=== PATIENT | male | born 1980 | race Caucasian/White ===

== ENCOUNTER 2022-03-05 13:52 | Inpatient (IN) | payer MEDICAID ==
[~2022-03-05] VITALS: Ht 167.6 cm; Wt 93.9 kg
[~2022-03-05 13:52] MED LIST: CALCIUM CHLORIDE 1 GM/10 ML DISP.SYRIN IVP ONE; EPINEPHRINE 1:10,000 1 MG/10 ML DISP.SYRIN ONE; SODIUM BICARBONATE 8.4% 50 MEQ/50 ML DISP.SYRIN IV ONE
[2022-03-05] MEDS ORDERED: ASPIRIN 325 MG TABLET PO ONE (14:00)
[2022-03-05] MEDS ORDERED: FUROSEMIDE 40 MG/4 ML VIAL IV ONE (14:00)
--- NOTE | 2022-03-05 14:00 | NUR ---
EROS RA07 ON CPAP from home with c/o SOB. Pt is a [employer] member and was d/c from [employer] today morning per report. Pt to room 3A, placed on BiPap by GOODWILL AMBASSADOR. at bedside.
[2022-03-05] MEDS ORDERED: FUROSEMIDE 40 MG/4 ML VIAL ONE (14:02)
[2022-03-05] MEDS ORDERED: ASPIRIN 325 MG TABLET ONE (14:02)
[2022-03-05 14:11] LABS: HEMATOCRIT 44.1 % (36.7-47.1); MEAN CORPUSCULAR HEMOGLOBIN 29.5 uug (23.8-33.4); MEAN CORPUSCULAR VOLUME 87.8 fL (73.0-96.2); PLATELET COUNT (AUTO) 231 K/uL (152-348)
[2022-03-05 14:16] LABS: CARBON DIOXIDE 23 mmol/L (21-32); CHLORIDE 102 mmol/L (98-107); CREATININE 1.6 mg/dL (0.6-1.3); GLUCOSE 210 mg/dL (74-106); POTASSIUM 4.1 mmol/L (3.5-5.1); UREA NITROGEN, BLOOD 26 mg/dL (7-18)
[2022-03-05] MEDS ORDERED: NITR0.4T48 SL (14:16)
[2022-03-05] MEDS ORDERED: EZET10TA15 PO (14:16)
[2022-03-05] MEDS ORDERED: NPH,100V SQ (14:16)
[2022-03-05] MEDS ORDERED: DABI150C PO (14:16)
[2022-03-05] MEDS ORDERED: LEVE500T20 PO (14:16)
[2022-03-05] MEDS ORDERED: FURO20TA4 PO (14:16)
[2022-03-05] MEDS ORDERED: ATOR80TA PO (14:16)
[2022-03-05] MEDS ORDERED: LOSA25TA27 PO (14:16)
[2022-03-05] MEDS ORDERED: GLIP5TAB13 PO (14:16)
[2022-03-05] MEDS ORDERED: CARV12.52 PO (14:16)
[2022-03-05 14:25] LABS: ALANINE AMINOTRANSFERASE 92 U/L (16-63); ALKALINE PHOSPHATASE 208 U/L (50-136); ASPARTATE AMINOTRANSFERASE 49 U/L (15-37); BILIRUBIN,DIRECT 0.2 mg/dL (0.0-0.2); BILIRUBIN,TOTAL 0.8 mg/dL (0.2-1.0); TOTAL PROTEIN, SERUM 7.1 g/dL (6.4-8.2)
[2022-03-05] MEDS ORDERED: hydrALAZINE HCL 20 MG/1 ML VIAL ONE ×2 (14:29)
[2022-03-05] MEDS ORDERED: hydrALAZINE HCL 20 MG/1 ML VIAL IV ONE (14:30)
[2022-03-05] MEDS ORDERED: CEFTRIAXONE 1 G in IV DEXTROSE 5% 50 ML IV ONE (14:45)
[2022-03-05] MEDS ORDERED: CEFTRIAXONE /D5W 50ML IVPB **ER PYXIS IV ONE (14:50)
--- NOTE | 2022-03-05 17:08 | NUR ---
Received call from lab, pt Troponin is 13,001. made aware.
[2022-03-05] MEDS ORDERED: AZITHROMYCIN IV 500 MG in IV DEXTROSE 5% 250 ML IV ONE (17:15)
[2022-03-05] MEDS ORDERED: AZITHROMYCIN 500MG/ D5W 250ML IVPB **ER PYXIS ONLY IV ONE (17:23)
--- NOTE | 2022-03-05 18:09 | NUR ---
Notified about pt's Troponin of 5030.
[2022-03-05] MEDS ORDERED: ONDANSETRON 4 MG/2 ML VIAL ONE (18:11)
--- NOTE | 2022-03-05 18:20 | NUR ---
Pt to be admitted to CCU under care of Parviz Garrett DNP.
[2022-03-05] MEDS ORDERED: NITROGLYCERIN 0.4 MG/TAB BOTTLE SL PRN (19:45)
[2022-03-05 20:00] VITALS: BP 149/74
[2022-03-05] MEDS: ATORVASTATIN 40 MG TABLET PO SCH (21:00)
[2022-03-05] MEDS ORDERED: SUCCINYLCHOLINE CHLORIDE 200 MG/10 ML VIAL IV ONE (21:00)
[2022-03-05] MEDS ORDERED: ETOMIDATE 20 MG/10 ML VIAL IV ONE (21:00)
[2022-03-05] MEDS ORDERED: CARVEDILOL 12.5 MG TABLET PO SCH (21:50)
[2022-03-05] MEDS ORDERED: FUROSEMIDE 20 MG TABLET PO SCH (21:51)
[2022-03-05] MEDS: LOSARTAN POTASSIUM 25 MG TABLET PO SCH (21:53)
[2022-03-05] MEDS ORDERED: FUROSEMIDE 20 MG TABLET ONE (22:12)
[2022-03-05] MEDS ORDERED: levETIRAcetam 250 MG TABLET ONE (22:12)
[2022-03-05] MEDS ORDERED: ATORVASTATIN 20 MG TABLET ONE (22:13)
[2022-03-05] MEDS ORDERED: CARVEDILOL 12.5 MG TABLET ONE (22:13)
[2022-03-05] MEDS: levETIRAcetam 500 MG TABLET PO SCH (22:25)
--- NOTE | 2022-03-05 23:33 | NUR ---
No admission orders on pt Calls x2 placed as pt is still on ED census.
[2022-03-06] VITALS (14 sets, daily range): BP systolic 87–158; BP diastolic 33–98
--- NOTE | 2022-03-06 | NUR ---
bPT HR 59-61. BP 125/64. MD NOTIFIED
--- NOTE | 2022-03-06 05:06 | NUR ---
Patient tachypnic Noted grimacing but states he is not in pain when asked. Afebrile this am. Sinus rhythm/Sinus tach on monitor. Pending bed availibility on floor. On Lasix urine output good. No nausea or vomiting at this time.
--- NOTE | 2022-03-06 05:28 | NUR ---
Pt off Bipap during the night Saturation above 92%
[2022-03-06] MEDS ORDERED: BUMETANIDE INJ 6 MG in IV DEXTROSE 5% 36 ML IV ONE (07:00)
[2022-03-06] MEDS ORDERED: ONDANSETRON 4 MG/2 ML VIAL IV PRN (07:00)
[2022-03-06] MEDS: PANTOPRAZOLE SODIUM 40 MG TABLET.DR PO SCH (07:00)
[2022-03-06] MEDS ORDERED: REMEDY ESSENTIAL ZINC PASTE 113 GM TP PRN (07:00)
[2022-03-06] MEDS ORDERED: DEXTROSE 50% 50 ML DISP.SYRIN IV PRN (07:00)
[2022-03-06] MEDS: glipiZIDE 10 MG TABLET PO SCH ×2 (07:30→16:30)
[2022-03-06] MEDS: BLOOD SUGAR DIAGNOSTIC 1 EACH STRIP VI SCH ×4 (08:03→23:00)
[2022-03-06] MEDS ORDERED: INSULIN REGULAR, HUMAN 300 UNIT/3 ML VIAL ONE (08:04)
--- NOTE | 2022-03-06 08:07 | NUR ---
Queued orders placed. REport to charge nurse in ED. Pt to be transferred to #rd Floor. Pending Heparin and Bumex drips. Pt stable and improved
[2022-03-06 08:12] LABS: HEMATOCRIT 40.6 % (36.7-47.1); MEAN CORPUSCULAR HEMOGLOBIN 30.5 uug (23.8-33.4); MEAN CORPUSCULAR VOLUME 88.1 fL (73.0-96.2); PLATELET COUNT (AUTO) 170 K/uL (152-348)
[2022-03-06] MEDS: INSULIN REGULAR, HUMAN 300 UNITS/3 ML VIAL SQ PRN (08:14)
[2022-03-06 08:28] LABS: BILIRUBIN,TOTAL 1.2 mg/dL (0.2-1.0); CREATININE 1.9 mg/dL (0.6-1.3); POTASSIUM 4.3 mmol/L (3.5-5.1); TOTAL PROTEIN, SERUM 6.3 g/dL (6.4-8.2)
[2022-03-06] MEDS: INSULIN NPH 1,000 UNITS/10 ML VIAL SQ SCH ×2 (09:00→17:10)
[2022-03-06] MEDS ORDERED: levETIRAcetam 250 MG TABLET ONE (09:01)
[2022-03-06] MEDS ORDERED: ASPIRIN EC 81 MG TABLET.DR PO ONE (09:01)
[2022-03-06] MEDS ORDERED: PANTOPRAZOLE SODIUM 40 MG TABLET.DR PO ONE (09:01)
[2022-03-06] MEDS ORDERED: CARVEDILOL 12.5 MG TABLET ONE (09:01)
[2022-03-06] MEDS: ASPIRIN 81 MG TAB.CHEW PO SCH (09:13)
[2022-03-06] MEDS: CARVEDILOL 12.5 MG TABLET PO SCH ×2 (09:20→21:14)
[2022-03-06] MEDS: LOSARTAN POTASSIUM 25 MG TABLET PO SCH ×2 (09:21→21:15)
[2022-03-06] MEDS: levETIRAcetam 500 MG TABLET PO SCH ×3 (09:22→21:13)
[2022-03-06] MEDS: EZETIMIBE 10 MG TABLET PO SCH (09:23)
[2022-03-06] MEDS: CLOPIDOGREL 75 MG TABLET PO SCH (09:24)
[2022-03-06] MEDS ORDERED: CLOPIDOGREL 75 MG TABLET ONE (09:24)
[2022-03-06] MEDS ORDERED: INSULIN NPH 1,000 UNITS/10 ML VIAL SQ ONE (10:08)
--- NOTE | 2022-03-06 10:08 | NUR ---
Called Lab for f/u on PTT lab result, still pending per lab.
[2022-03-06] MEDS ORDERED: hydrALAZINE HCL 20 MG/1 ML VIAL IM ONE (10:10)
[2022-03-06] MEDS ORDERED: CEFAZOLIN 1 G VIAL IM ONE (10:10)
[2022-03-06] MEDS ORDERED: ONDANSETRON 4 MG/2 ML VIAL IV ONE (10:10)
[2022-03-06] MEDS ORDERED: METOCLOPRAMIDE HCL 10 MG/2 ML VIAL IV ONE (10:10)
[2022-03-06] MEDS ORDERED: PROPOFOL 200 MG/20 ML BOTTLE IV ONE (10:10)
[2022-03-06] MEDS ORDERED: SEVOFLURANE 250 ML BOTTLE IH ONE (10:10)
[2022-03-06] MEDS ORDERED: LIDOCAINE-MPF 2% 5 ML VIAL IJ ONE (10:10)
[2022-03-06] MEDS ORDERED: NEOSTIGMINE METHYLSULFATE 10 MG/10 ML VIAL IM ONE (10:10)
[2022-03-06] MEDS ORDERED: HEPARIN SODIUM,PORCINE 5,000 UNITS/ML VIAL IV ONE (10:30)
[2022-03-06] MEDS ORDERED: HEPARIN SODIUM,PORCINE 5,000 UNITS/ML VIAL ONE (10:41)
[2022-03-06] MEDS ORDERED: HEPARIN/D5W DRIP 500 ML ONE (10:41)
[2022-03-06] MEDS: HEPARIN/D5W DRIP 500 ML IV PRN (10:46)
[2022-03-06] MEDS ORDERED: LORAZEPAM 2 MG/1 ML VIAL IV PRN (11:15)
[2022-03-06] MEDS ORDERED: LORAZEPAM 2 MG/1 ML VIAL ONE (11:18)
[2022-03-06] MEDS: INSULIN REGULAR, HUMAN 300 UNIT/3 ML VIAL SQ PRN ×2 (12:00→17:15)
--- NOTE | 2022-03-06 12:34 | NUR ---
Bumex infusing @ 1mg/hour, Heparin infusing at 1200 units/hour PIV L AC. Patient on BiPAP, O2 sat now 97% up from 91% on NRB mask. Report called to ICU, awaiting RT to transport patient. No c/o chest pain with elevated troponin. Monitor RSR.
[2022-03-06 13:35] LABS: *AMPHETAMINE, URINE NEGATIVE (NEGATIVE); *CANNABINOID, URINE NEGATIVE (NEGATIVE); *COCCAINE, URINE NEGATIVE (NEGATIVE); *OPIATE, URINE POSITIVE (NEGATIVE); *PHENCYCLIDINE SCREEN,URINE NEGATIVE (NEGATIVE)
[2022-03-06] MEDS ORDERED: LIDOCAINE 2% (GLYDO= UROJET) 10 ML JELLY MM PRN (15:00)
--- NOTE | 2022-03-06 16:49 | NUR ---
Pt given ativan for restlessness and is still very restless and trying to get out of bed
--- NOTE | 2022-03-06 17:06 | NUR ---
Midline inserted by Delia from service in the left upper arm. Site is clean dry and patent
--- NOTE | 2022-03-06 17:41 | NUR ---
Sabrina Spoke with Dr Parviz Richardson about pt getting 1mg of ativan as ordered and still restless and moving about. 1:1 sitter ordered with stat chest xray and Olanzapine 10mg IM now
[2022-03-06] MEDS ORDERED: OLANZAPINE 10 MG VIAL IM ONE (17:45)
--- NOTE | 2022-03-06 19:46 | NUR ---
A call to Dr. Parviz Garrett as requested earlier to report X-ray imaging orders for STAT chest C-T without contrast and stat ABG received. and endorse to returns supervisor and assigned night nurse Juanita.
--- NOTE | 2022-03-06 20:02 | NUR ---
patient isnt stable to come to CT. RN to call the department when ready.
[2022-03-06 20:35] LABS: ABG BASE EXCESS 3.1 mmol/L; ABG PCO2 30.3 mmHg (35.0-45.0); ABG PH 7.534 (7.350-7.450); ABG PO2 79.4 mmHg (75.0-100.0); ABG SITE RIGHT RADIAL; ABG TOTAL HEMOGLOBIN 13.6 G/dL (13.5-18.0); COHb 0.3 % (0.5-1.5); MetHb 0.3 % (0.0-1.5); VENT MODE BIPAP
[2022-03-06] MEDS ORDERED: LORAZEPAM 2 MG/1 ML VIAL IV STA (20:58)
[2022-03-06] MEDS: ATORVASTATIN 40 MG TABLET PO SCH (21:13)
[2022-03-06] MEDS ORDERED: CEFEPIME HCL 1 G VIAL ONE (23:25)
[2022-03-06] MEDS ORDERED: VANCOMYCIN 1000 MG VIAL ONE (23:26)
[2022-03-06] MEDS ORDERED: VANCOMYCIN IV 2,000 MG in IV DEXTROSE 5% 500 ML IV ONE (23:30)
[2022-03-07] VITALS (38 sets, daily range): BP systolic 65–167; BP diastolic 38–129
[2022-03-07] MEDS ORDERED: ETOMIDATE 20 MG/10 ML VIAL IV ONE
[2022-03-07] MEDS ORDERED: SUCCINYLCHOLINE CHLORIDE 200 MG/10 ML VIAL IV ONE
[2022-03-07] MEDS: PROPOFOL 100 ML IV PRN ×3 (00:30→17:53)
[2022-03-07] MEDS: CEFEPIME HCL 2 G in IV DEXTROSE 5% 100 ML IV SCH ×3 (00:56→23:08)
[2022-03-07] MEDS ORDERED: PROPOFOL 100 ML IV PRN ×2 (01:45)
[2022-03-07] MEDS ORDERED: NOREPINEPHRINE BITARTRATE 8 MG in IV NORMAL SALINE 242 ML IV PRN (01:45)
[2022-03-07] MEDS ORDERED: NOREPINEPHRINE BITARTRATE 4 MG/4 ML VIAL IV ONE ×2 (01:49→02:10)
--- NOTE | 2022-03-07 02:39 | NUR ---
PATIENT MR DIAZ, AT 19:00 WAS ON BI/PAP MACHINE WITH FULL LARGE MASK, WITH MOD. RESP. DISTRESS, AND RESTLESS AT TIMES, PT TURNS ALOT OF LEFT SIDE, PT WAS GOING TO CT/SCAN IN A BIT; PT WAS PLACED ON NRB MASK @ 100%, AND THEN BECAME WITH INCREASE WORK OF BREATHING HIGH HR, RR INCREASED, AND DE SAT- PULSE OXY WAS 95% ON BI/PAP THEN 83%, ON NRB MASK,SO PT THEN BACK ON BI/PAP TO CT/ SCAN AND RT ASSIST , HAD ABG AROUND 20:30, RESP. ALK. , PT GOING TO CT SCAN WITH RT ABOUT 21:20. , BACK BY 22;00. PT BREATHING VERY RAPID, MAY NEED A LITTLE SEDATION TO SLOW HIM DOWN, THEN DR ARRIETA WANTS PT INTUBATED APPROX. [id number], DR BELTRÁN CALLED FROM, ER, TO INTUBATE, 7.5 ET TUBE, 22CM LIP LINE, WITH INITIAL SETTINGS, FROM DR BELTRÁN, A/C 16, VT 550ML, PEEP5, 100%, THEN BY 129, DR ERIC WANT DIFFERENT VENT SETTINGS, A/C 24, VT 450ML, PEEP10, 100%, PT THEN BECAME RESTLESS, MOVING AROUND, WITH INCREASE HR AND RR ABOVE 48, NURSING ANG INTERACTIVE MULTIMEDIA DESIGNER CALLED RAPID RESPONSE, PT NEEDS SEDATION, PT PLACED BACK ON ORIGINAL VENT SETTINGS, A/C 16, VT 550ML, 100%, WITH PEEP10 NOW , AND IMPROVING AROUND 02:10 RR28, HR 97, WITH ABG LATER , MARTINEZ ELEMENT HERE SEDATION. Corinne GOEL SPECIAL DUTY NURSE Addendum: 03/07/22 at 0252 by RYAN GOEL RT Amended: Links added.
[2022-03-07 05:28] LABS: ABG BASE EXCESS 2.3 mmol/L; ABG PCO2 28.6 mmHg (35.0-45.0); ABG PH 7.541 (7.350-7.450); ABG PO2 83.9 mmHg (75.0-100.0); ABG SITE RIGHT RADIAL; COHb 0.2 % (0.5-1.5); MetHb 0.3 % (0.0-1.5); O2Hb 96.6 % (94.0-97.0); VENT MODE VENT - A/C; VT, ABG 550 mL
[2022-03-07] MEDS: ACETAMINOPHEN 650 MG SUPP.RECT RC PRN ×2 (05:30→12:00)
[2022-03-07 05:33] LABS: HEMATOCRIT 37.2 % (36.7-47.1); MEAN CORPUSCULAR HEMOGLOBIN 30.5 uug (23.8-33.4); MEAN CORPUSCULAR VOLUME 87.1 fL (73.0-96.2); PLATELET COUNT (AUTO) 122 K/uL (152-348)
[2022-03-07 05:38] LABS: BILIRUBIN,TOTAL 0.9 mg/dL (0.2-1.0); CREATININE 2.6 mg/dL (0.6-1.3); MAGNESIUM 1.6 mg/dL (1.8-2.4); PHOSPHOROUS 3.2 mg/dL (2.5-4.9); POTASSIUM 3.4 mmol/L (3.5-5.1)
--- NOTE | 2022-03-07 06:00 | NUR ---
[id number] REPORT FROM MARY JONES. PT HAS IS ON BIPAP AND SHOWS S/S OF ACUTE RESP. DISTRESS. CONTACTED AND ORD. STAT ABG AND STAT CT OF THE CHEST W/O CONTRAST. PT HAS BEEN IN S.TACH OF 110-130-140'S. BP ALSO ELEVATED AT TIMES TO >160'S SYST. PT ALSO HAD DESAT IN THE 80'S WHEN PLACED ON NRB FMK JUST BEFORE GOING TO CT. PT PLACED BACK ON BIPAP AND WHEN PT BECAME MORE STABLE WITH POX >90-PT WAS TAKEN TO CT WITH ACLS PROTOCOL. RTX AND BATTERY ASSEMBLER DRY CELL PRESENT WITH TRANSPORT TO CT SCAN. PT ALSO HAD ABG RESULTS-CALLED TO DR. ARRIETA.NO NEW ORDS. PT CONT. IN RESP DISTRESS- CONTACTED AGAIN AND GAVE ORDER FOR PT TO BE INTUBATED. PT INTUBATED AT APROX 2345. PT'S WAS AT BEDSIDE EARLIER-BUT SPOKE TO ER MD ABOUT INTUBATION. PT INTUBATED BY DR. BELTRÁN. PT PRANAV WELL EXCEPT POX WAS LOW IN THE 80'S. S/P CXR DONE-SHOWED PLACEMENT IS GOOD.MD INFORMED. VENT SETTINGS WERE FIO2 100%, AC16,TV 550 AND P+5. RTX AT BEDSIDE IS RTX MARIBEL. PT'S POX INCREASED TO 95-97%. INFORMED AND CHANGED VENT SETTINGS TO AC 24,TV 450 AND PEEP 10. PT'S POX IMMED WENT DOWN TO 80'S, THEN 70'S THEN 60-50'S. RAPID RESPONSE CALLED AT APROX 0150 BECAUSE PT CONT TO HAVE LOW SAT AND WAS VERY TACHEPNIC WITH RR OF 30-50'S. WIRE WEAVER HELPER ERNESTO BAUTISTA CONTACTED AND ORD VENT SETTINGS FROM INITIAL VENT SETTING OF AC 16,TV 550 AND PEEP 10. POX IMMED WENT BACK UP TO 97-98%. ABG DONE ALSO.PT ALSO WAS STARTED ON DIPRIVAN DRIP (STARTED AT 10MCG THEN WENT UP TO 40MCG). #20 LEFT SHOULDER IV STARTED BY CEMETERY MANAGERMARY PERLA. PT ALSO HAS BEEN ON HEPARIN DRIP WITH PROTOCOL PER PHARM. HEPARIN DRIP WAS STOPPED AT 0600 DUE TO PTT OF 91.3-ORDS GIVEN TO RESTART IN 1HR(0700) AT 900 UNITS/HR. PT SHOWS NO S/S OF BLEEDING. ALSO, EARLIER AT 2300 PT HAD ACCUCHECK OF 51(REPEAT WAS 47). PT MED WITH D50 1AMP-ACCUCHECK AFTERWARDS WAS 104. PT ALSO HAS ORD FOR SOFT RESTRAINTS-ATTEMPTED TO PULL LINES AND TUBES EARLIER. PT HAS F/C-U/O 700CC-HOMA/CLR. PT HAS BEEN FEBRILE THRU-OUT THE NIGHT. BC DONE AND COOLING CHRISTINE DONE-TMAX WAS 102.8F. PT ALSO MED WITH TYLENOL SUPP. TEMP CAME DOWN TO 99.2F BUT WENT BACK UP TO 101F. COOLING CHRISTINE CONT. BATH AND LINEN CHANGE DONE. SKIN IS D/I. AM LABS DONE. GEN COND HAS BEEN VERY GUARDED. PT ALSO IS IN DROPLET ISOLATION PUI. PT ENDORSED TO MARY BRADY. JESSI HERNANDEZ
[2022-03-07] MEDS: PANTOPRAZOLE SODIUM 40 MG TABLET.DR PO SCH ×2 (06:50→07:00)
[2022-03-07] MEDS: HEPARIN/D5W DRIP 500 ML IV PRN (07:19)
[2022-03-07] MEDS ORDERED: METOLAZONE 2.5 MG TABLET PO ONE (07:30)
[2022-03-07] MEDS: BLOOD SUGAR DIAGNOSTIC 1 EACH STRIP VI SCH ×4 (07:30→21:00)
--- NOTE | 2022-03-07 08:00 | NUR ---
Received patient ETT to Vent. Sedated. Vent setting as follows TV 550, AC 26, PEEP 10 and 100% FiO2. SR in the monitor. On Heparin drip. IV on the Left Upper arm and left arm midline patent and intact. group home assessment done. No new skin issues. Richards draining alex urine with sediments. Safety initiated. Will continue to monitor.
[2022-03-07] MEDS: NOREPINEPHRINE BITARTRATE 8 MG in IV NORMAL SALINE 242 ML IV PRN ×2 (08:50→19:14)
[2022-03-07] MEDS: INSULIN NPH 1,000 UNITS/10 ML VIAL SQ SCH ×2 (09:00→17:06)
[2022-03-07] MEDS: POTASSIUM CHLORIDE 50 ML IV SCH ×2 (09:59→11:07)
[2022-03-07] MEDS: MAGNESIUM SULFATE/D5W 100 ML IV SCH ×2 (10:00→11:50)
[2022-03-07] MEDS: FUROSEMIDE 40 MG/4 ML VIAL IV SCH ×3 (10:01→23:30)
[2022-03-07] MEDS ORDERED: GLUCERNA 1.2 1000ML LIQUID NG PRN ×2 (11:00→12:13)
--- NOTE | 2022-03-07 12:30 | NUR ---
Pt is spiking a fever at 101. Tylenol suppository given. Will continue to monitor.
[2022-03-07] MEDS: CLOPIDOGREL 75 MG TABLET PO SCH (13:11)
[2022-03-07] MEDS: EZETIMIBE 10 MG TABLET PO SCH (13:12)
[2022-03-07] MEDS: levETIRAcetam 500 MG TABLET PO SCH ×2 (13:12→22:36)
[2022-03-07] MEDS: ASPIRIN 81 MG TAB.CHEW PO SCH (13:12)
[2022-03-07] MEDS: glipiZIDE 10 MG TABLET PO SCH ×2 (13:12→17:05)
[2022-03-07] MEDS: GLUCERNA 1.2 1000ML LIQUID NG PRN (13:13)
--- NOTE | 2022-03-07 13:30 | NUR ---
Fever has resolved at 98.0. Will continue to monitor.
[2022-03-07] MEDS: ACETAMINOPHEN 325 MG TABLET PO PRN (22:56)
[2022-03-08] VITALS (67 sets, daily range): BP systolic 78–162; BP diastolic 35–104
[2022-03-08] MEDS: PROPOFOL 100 ML IV PRN ×7 (01:14→22:00)
--- NOTE | 2022-03-08 04:27 | NUR ---
PATIENT REMAINS INTUBATED ON NGUYEN VENT , WITH CURRENT VENT SETTINGS, A/C 16, VT 550ML, PEEP10, FIO2 2 80%, PT SEDATED , PRN SUCTION, ABG BEFORE 06;00. D AMANDO FONTANEZ Addendum: 03/08/22 at 0428 by RYAN GOEL RT Amended: Links added.
[2022-03-08] MEDS ORDERED: NOREPINEPHRINE BITARTRATE 32 MG in IV NORMAL SALINE 218 ML IV PRN (05:30)
[2022-03-08 05:41] LABS: HEMATOCRIT 37.8 % (36.7-47.1); MEAN CORPUSCULAR HEMOGLOBIN 30.7 uug (23.8-33.4); MEAN CORPUSCULAR VOLUME 87.4 fL (73.0-96.2); PLATELET COUNT (AUTO) 146 K/uL (152-348)
[2022-03-08 05:44] LABS: CREATININE 2.3 mg/dL (0.6-1.3); POTASSIUM 3.8 mmol/L (3.5-5.1)
[2022-03-08 06:44] LABS: ABG HCO3 23.6 mmol/L; ABG PCO2 25.9 mmHg (35.0-45.0); ABG PH 7.577 (7.350-7.450); ABG PO2 236.7 mmHg (75.0-100.0); ABG SITE LEFT RADIAL; COHb 0.5 % (0.5-1.5); MetHb 0.4 % (0.0-1.5); O2Hb 98.7 % (94.0-97.0); VENT MODE VENT - A/C; VT, ABG 550 mL
[2022-03-08] MEDS: BLOOD SUGAR DIAGNOSTIC 1 EACH STRIP VI SCH ×4 (07:30→21:49)
[2022-03-08] MEDS: glipiZIDE 10 MG TABLET PO SCH ×2 (07:30→16:23)
[2022-03-08] MEDS ORDERED: VANCOMYCIN IV 1,000 MG in IV DEXTROSE 5% 250 ML IV ONE (08:00)
[2022-03-08] MEDS ORDERED: METOLAZONE 2.5 MG TABLET PO ONE (08:15)
--- NOTE | 2022-03-08 08:30 | NUR ---
Pt remains sedated on propofol . levophed and heparin drips in progress. Stable BP Urine output good.
[2022-03-08] MEDS: FUROSEMIDE 40 MG/4 ML VIAL IV SCH ×2 (08:31→16:22)
[2022-03-08] MEDS: levETIRAcetam 500 MG TABLET PO SCH ×2 (08:31→21:13)
[2022-03-08] MEDS: ASPIRIN 81 MG TAB.CHEW PO SCH (08:32)
[2022-03-08] MEDS: CLOPIDOGREL 75 MG TABLET PO SCH (08:32)
[2022-03-08] MEDS: EZETIMIBE 10 MG TABLET PO SCH (08:32)
[2022-03-08] MEDS: INSULIN NPH 1,000 UNITS/10 ML VIAL SQ SCH ×2 (08:33→16:26)
[2022-03-08] MEDS: NOREPINEPHRINE BITARTRATE 8 MG in IV NORMAL SALINE 242 ML IV PRN ×2 (08:34→13:15)
[2022-03-08] MEDS: HEPARIN/D5W DRIP 500 ML IV PRN (08:36)
[2022-03-08] MEDS: INSULIN REGULAR, HUMAN 300 UNIT/3 ML VIAL SQ PRN ×3 (08:53→16:27)
[2022-03-08] MEDS: INSULIN REGULAR, HUMAN 300 UNITS/3 ML VIAL SQ PRN (08:58)
[2022-03-08] MEDS: ACETAMINOPHEN 325 MG TABLET PO PRN (09:07)
[2022-03-08] MEDS: CEFEPIME HCL 2 G in IV DEXTROSE 5% 100 ML IV SCH ×2 (11:44→23:00)
[2022-03-09] VITALS (68 sets, daily range): BP systolic 93–146; BP diastolic 52–81
[2022-03-09] MEDS: INSULIN REGULAR, HUMAN 300 UNIT/3 ML VIAL SQ PRN ×2 (00:06→17:13)
--- NOTE | 2022-03-09 00:13 | NUR ---
SLIDING SCALE INSULIN 2 UNITS GIVEN @2100 HOURS BUT CO SIGNED BY THE FINANCIAL INVESTMENT MANAGER AT 0006 HOURS
[2022-03-09] MEDS: FUROSEMIDE 40 MG/4 ML VIAL IV SCH (00:45)
[2022-03-09] MEDS: NOREPINEPHRINE BITARTRATE 8 MG in IV NORMAL SALINE 242 ML IV PRN ×2 (00:45→16:18)
[2022-03-09] MEDS: PROPOFOL 100 ML IV PRN ×5 (03:25→21:00)
[2022-03-09] MEDS: ACETAMINOPHEN 325 MG TABLET PO PRN ×2 (04:53→12:43)
[2022-03-09 05:17] LABS: BILIRUBIN,DIRECT 0.5 mg/dL (0.0-0.2); BILIRUBIN,TOTAL 0.9 mg/dL (0.2-1.0); CREATININE 3.6 mg/dL (0.6-1.3); MAGNESIUM 2.3 mg/dL (1.8-2.4); TOTAL PROTEIN, SERUM 5.8 g/dL (6.4-8.2); VANCOMYCIN,RANDOM 15.7 ug/mL (18.0-26.0)
[2022-03-09 05:31] LABS: HEMATOCRIT 35.8 % (36.7-47.1); MEAN CORPUSCULAR HEMOGLOBIN 30.8 uug (23.8-33.4); MEAN CORPUSCULAR VOLUME 85.6 fL (73.0-96.2); PLATELET COUNT (AUTO) 105 K/uL (152-348); POTASSIUM 2.8 mmol/L (3.5-5.1)
[2022-03-09] MEDS: ALBUMIN HUMAN 25% 100 ML IV SCH ×2 (06:00)
[2022-03-09 06:13] LABS: ABG HCO3 26.6 mmol/L; ABG PCO2 33.3 mmHg (35.0-45.0); ABG PO2 130.5 mmHg (75.0-100.0); ABG SITE RIGHT RADIAL; ABG TOTAL HEMOGLOBIN 13.1 G/dL (13.5-18.0); COHb 0.6 % (0.5-1.5); MetHb 0.1 % (0.0-1.5); O2Hb 98.3 % (94.0-97.0); VENT MODE VENT - A/C; VT, ABG 550 mL
[2022-03-09] MEDS: PANTOPRAZOLE SODIUM 40 MG TABLET.DR PO SCH (07:00)
[2022-03-09] MEDS: BLOOD SUGAR DIAGNOSTIC 1 EACH STRIP VI SCH ×4 (08:13→21:00)
[2022-03-09] MEDS: POTASSIUM CHLORIDE 50 ML IV SCH ×4 (08:25→11:35)
[2022-03-09] MEDS: EZETIMIBE 10 MG TABLET PO SCH (09:00)
[2022-03-09] MEDS: glipiZIDE 10 MG TABLET PO SCH ×2 (09:05→16:42)
[2022-03-09] MEDS: INSULIN NPH 1,000 UNITS/10 ML VIAL SQ SCH ×2 (09:05→17:15)
[2022-03-09] MEDS: ASPIRIN 81 MG TAB.CHEW PO SCH (09:06)
[2022-03-09] MEDS: CLOPIDOGREL 75 MG TABLET PO SCH (09:06)
[2022-03-09] MEDS: levETIRAcetam 500 MG TABLET PO SCH ×2 (09:06→21:32)
[2022-03-09] MEDS ORDERED: POTASSIUM CHLORIDE 20 MEQ POWDER PACKET GT ONE (11:00)
[2022-03-09] MEDS: CEFEPIME HCL 2 G in IV DEXTROSE 5% 100 ML IV SCH (11:50)
[2022-03-09] MEDS ORDERED: VANCOMYCIN IV 750 MG in IV DEXTROSE 5% 250 ML IV ONE (13:00)
[2022-03-09] MEDS ORDERED: ALBUMIN HUMAN 25% 100 ML IV SCH ×2 (15:00→16:46)
[2022-03-09] MEDS: HEPARIN/D5W DRIP 500 ML IV PRN (16:52)
[2022-03-09] MEDS ORDERED: CEFEPIME HCL 1 G in IV DEXTROSE 5% 50 ML IV SCH (23:00)
[2022-03-10] VITALS (53 sets, daily range): BP systolic 113–156; BP diastolic 68–86
[2022-03-10] MEDS: PROPOFOL 100 ML IV PRN ×5 (02:00→20:10)
[2022-03-10 04:49] LABS: HEMATOCRIT 34.5 % (36.7-47.1); MEAN CORPUSCULAR HEMOGLOBIN 30.8 uug (23.8-33.4); MEAN CORPUSCULAR VOLUME 86.1 fL (73.0-96.2); PLATELET COUNT (AUTO) 94 K/uL (152-348)
[2022-03-10 04:58] LABS: BILIRUBIN,TOTAL 1.6 mg/dL (0.2-1.0); MAGNESIUM 2.6 mg/dL (1.8-2.4); PHOSPHOROUS 2.6 mg/dL (2.5-4.9); POTASSIUM 2.9 mmol/L (3.5-5.1); TOTAL PROTEIN, SERUM 6.3 g/dL (6.4-8.2); VANCOMYCIN,RANDOM 24.1 ug/mL (18.0-26.0)
[2022-03-10] MEDS ORDERED: ALBUMIN HUMAN 25% 50 ML ONE (06:00)
[2022-03-10] MEDS: ALBUMIN HUMAN 25% 100 ML IV SCH ×3 (06:16→12:00)
[2022-03-10] MEDS: GLUCERNA 1.2 1000ML LIQUID NG PRN (07:11)
[2022-03-10] MEDS: NOREPINEPHRINE BITARTRATE 8 MG in IV NORMAL SALINE 242 ML IV PRN (07:13)
[2022-03-10] MEDS: BLOOD SUGAR DIAGNOSTIC 1 EACH STRIP VI SCH ×4 (07:30→21:00)
[2022-03-10] MEDS: glipiZIDE 10 MG TABLET PO SCH ×2 (07:30→12:12)
[2022-03-10] MEDS: EZETIMIBE 10 MG TABLET PO SCH (09:00)
[2022-03-10] MEDS: INSULIN NPH 1,000 UNITS/10 ML VIAL SQ SCH ×2 (09:00→17:39)
[2022-03-10] MEDS: PANTOPRAZOLE ORAL SUSPENSION 40 MG SUSPDR.PKT NG SCH (10:00)
[2022-03-10] MEDS ORDERED: POTASSIUM CHLORIDE 20 MEQ POWDER PACKET GT ONE (10:00)
[2022-03-10] MEDS: levETIRAcetam 500 MG/5 ML LIQUID UDC NG SCH ×2 (10:00→21:46)
[2022-03-10] MEDS ORDERED: ASPIRIN 81 MG TAB.CHEW PO SCH (10:36)
[2022-03-10] MEDS: CLOPIDOGREL 75 MG TABLET PO SCH (10:37)
[2022-03-10] MEDS ORDERED: IV LACTATED RINGERS SOLUTION 1,000 ML IV PRN (11:00)
[2022-03-10] MEDS ORDERED: IV LACTATED RINGERS SOLUTION 1,000 ML IV ONE (11:27)
[2022-03-10] MEDS ORDERED: ALBUMIN HUMAN 25% 100 ML IV ONE (18:00)
[2022-03-10] MEDS: APIXABAN 5 MG TABLET PO SCH (21:00)
[2022-03-10] MEDS: ACETAMINOPHEN 325 MG TABLET PO PRN (21:46)
[2022-03-10] MEDS: CEFEPIME HCL 2 G in IV DEXTROSE 5% 100 ML IV SCH (21:49)
[2022-03-11] VITALS (52 sets, daily range): BP systolic 115–166; BP diastolic 70–104
[2022-03-11] MEDS: PROPOFOL 100 ML IV PRN ×2 (01:18→06:45)
--- NOTE | 2022-03-11 03:00 | NUR ---
PT REMAINS INTUBATED ON CMV, NO VENT CHANGES MADE DURING SHIFT. SPO2 WNL, RESPIRATIONS BETWEEN 25-30 THROUGHOUT SHIFT. NO DISTRESS NOTED. ETT REPOSITIONED Q2, ETT/ORAL SXN PRN. ORAL CARE PROVIDED. WILL CONTINUE TO MONITOR AND FOLLOW CURRENT RESPIRATORY ORDERS.
[2022-03-11 05:37] LABS: HEMATOCRIT 29.4 % (36.7-47.1); MEAN CORPUSCULAR HEMOGLOBIN 30.6 uug (23.8-33.4); MEAN CORPUSCULAR VOLUME 85.9 fL (73.0-96.2); PLATELET COUNT (AUTO) 113 K/uL (152-348)
--- NOTE | 2022-03-11 05:42 | NUR ---
Pt recieved patient lying in bed with eyes clothes. Pt. is sedated on propofol. No distress noted. Pt has a huge liquid bowel movement. Pt cleaned, with linen change. Blood glucose 61. 61 and then 64, 74 Pt comfortable throughout the night. Deep suctioning provided by Resp Therapist. Report endorsed to day shift RN. Addendum: 03/11/22 at 0658 by IAN TAVERA RN Rectal tube inserted because pt had a large amount of loose stools x2.
[2022-03-11 05:50] LABS: BILIRUBIN,TOTAL 2.8 mg/dL (0.2-1.0); CREATININE 5.6 mg/dL (0.6-1.3); MAGNESIUM 2.9 mg/dL (1.8-2.4); PHOSPHOROUS 2.4 mg/dL (2.5-4.9); TOTAL PROTEIN, SERUM 6.4 g/dL (6.4-8.2)
--- NOTE | 2022-03-11 07:30 | NUR ---
pt bleeding from inside of the mouth in the front upper teeth secondary to biting his waking up and agitation.
--- NOTE | 2022-03-11 07:30 | NUR ---
Recieved patient from clinic specialist nurse. Pt on Diprovan @30 and arousable. VS stable and pt is Tachypnic at a rate of 30
[2022-03-11] MEDS: BLOOD SUGAR DIAGNOSTIC 1 EACH STRIP VI SCH ×4 (07:56→21:00)
[2022-03-11] MEDS ORDERED: VANCOMYCIN IV 500 MG in IV DEXTROSE 5% 100 ML IV ONE (08:00)
[2022-03-11] MEDS: PANTOPRAZOLE ORAL SUSPENSION 40 MG SUSPDR.PKT NG SCH (08:02)
[2022-03-11] MEDS: glipiZIDE 10 MG TABLET PO SCH ×2 (08:02→16:11)
[2022-03-11] MEDS: levETIRAcetam 500 MG/5 ML LIQUID UDC NG SCH ×2 (08:55→20:46)
[2022-03-11] MEDS: INSULIN NPH 1,000 UNITS/10 ML VIAL SQ SCH ×2 (08:55→16:19)
[2022-03-11] MEDS: EZETIMIBE 10 MG TABLET PO SCH (08:56)
[2022-03-11] MEDS: CLOPIDOGREL 75 MG TABLET PO SCH (08:56)
[2022-03-11] MEDS: APIXABAN 5 MG TABLET PO SCH ×2 (08:58→21:57)
[2022-03-11] MEDS ORDERED: FUROSEMIDE 40 MG/4 ML VIAL IV ONE (09:00)
[2022-03-11] MEDS ORDERED: POTASSIUM CHLORIDE 20 MEQ POWDER PACKET NG ONE ×2 (10:00→13:00)
[2022-03-11] MEDS: DOBUTamine IV 250 ML IV PRN (10:05)
--- NOTE | 2022-03-11 10:23 | NUR ---
Parviz Garrett on unit and changed medications from diprovan to precedex and fentanyl
[2022-03-11] MEDS: PRECEDEX 400 MCG/100 ML BOTTLE 100 ML IV PRN ×5 (10:38→21:51)
[2022-03-11] MEDS: FENTANYL CITRATE/PF 1,000 MCG in IV NORMAL SALINE 80 ML IV PRN ×2 (11:01→19:20)
[2022-03-11] MEDS ORDERED: NEUTRA PHOS PACKET PO ONE (16:00)
[2022-03-11] MEDS: CEFEPIME HCL 2 G in IV DEXTROSE 5% 100 ML IV SCH (20:46)
[2022-03-11] MEDS: ACETAMINOPHEN 650 MG SUPP.RECT RC PRN (20:47)
[2022-03-11] MEDS: ACETAMINOPHEN 325 MG TABLET PO PRN (21:02)
[2022-03-12] VITALS (62 sets, daily range): BP systolic 12–171; BP diastolic 63–104
[2022-03-12] MEDS: PRECEDEX 400 MCG/100 ML BOTTLE 100 ML IV PRN ×8 (00:57→22:56)
[2022-03-12 05:31] LABS: POTASSIUM 4.1 mmol/L (3.5-5.1); VANCOMYCIN,RANDOM 19.4 ug/mL (18.0-26.0)
[2022-03-12] MEDS: ACETAMINOPHEN 325 MG TABLET PO PRN (05:43)
[2022-03-12] MEDS: PANTOPRAZOLE ORAL SUSPENSION 40 MG SUSPDR.PKT NG SCH (07:32)
[2022-03-12] MEDS: BLOOD SUGAR DIAGNOSTIC 1 EACH STRIP VI SCH ×4 (07:59→21:00)
[2022-03-12] MEDS: INSULIN REGULAR, HUMAN 300 UNIT/3 ML VIAL SQ PRN ×4 (08:07→22:28)
[2022-03-12] MEDS: ACETAMINOPHEN 650 MG SUPP.RECT RC PRN (08:09)
[2022-03-12] MEDS: INSULIN NPH 1,000 UNITS/10 ML VIAL SQ SCH ×3 (08:10→22:30)
[2022-03-12] MEDS ORDERED: METOLAZONE 2.5 MG TABLET PO ONE (08:15)
[2022-03-12 08:33] LABS: *BILIRUBIN,URIN 1+ (NEGATIVE); *BLOOD, URINE 3+ (NEGATIVE); *CLARITY,URINE TURBID (CLEAR); *COLOR,URINE YELLOW (YELLOW); *KETONES,URINE NEGATIVE (NEGATIVE); *UROBILINOGEN,URINE 0.2 E.U./dl (NORMAL); LEUKOCYTE ESTERASE ,URINE NEGATIVE (NEGATIVE); NITRITE, URINE NEGATIVE (NEGATIVE); PH,URINE 5.5 (5.0-8.0); UGLUCOSE NEGATIVE (NEGATIVE)
[2022-03-12] MEDS: EZETIMIBE 10 MG TABLET PO SCH (08:43)
[2022-03-12] MEDS: glipiZIDE 10 MG TABLET PO SCH ×2 (08:43→17:17)
[2022-03-12] MEDS: levETIRAcetam 500 MG/5 ML LIQUID UDC NG SCH ×2 (08:43→22:16)
[2022-03-12] MEDS: CLOPIDOGREL 75 MG TABLET PO SCH (08:45)
[2022-03-12] MEDS: FUROSEMIDE 40 MG/4 ML VIAL IV SCH ×2 (08:45→22:17)
[2022-03-12] MEDS: APIXABAN 5 MG TABLET PO SCH ×2 (08:53→22:31)
[2022-03-12 09:37] LABS: RBC,URINE 20-50 /HPF (0-3)
[2022-03-12 09:38] LABS: SQUAMOUS EPITHELIAL CELL,UR FEW /HPF (NONE SEEN)
[2022-03-12 09:39] LABS: URINE AMORPHOUS URATE MANY /HPF
[2022-03-12 09:40] LABS: BACTERIA,URINE MODERATE /HPF (NONE SEEN)
[2022-03-12 10:43] LABS: BILIRUBIN,DIRECT 1.6 mg/dL (0.0-0.2); BILIRUBIN,TOTAL 2.3 mg/dL (0.2-1.0); TOTAL PROTEIN, SERUM 7.2 g/dL (6.4-8.2)
[2022-03-12] MEDS ORDERED: VANCOMYCIN IV 500 MG in IV DEXTROSE 5% 100 ML IV ONE (13:00)
[2022-03-12 14:29] LABS: *BILIRUBIN,URIN 1+ (NEGATIVE); *BLOOD, URINE 3+ (NEGATIVE); *CLARITY,URINE CLOUDY (CLEAR); *COLOR,URINE YELLOW (YELLOW); *KETONES,URINE NEGATIVE (NEGATIVE); *UROBILINOGEN,URINE 0.2 E.U./dl (NORMAL); LEUKOCYTE ESTERASE ,URINE NEGATIVE (NEGATIVE); NITRITE, URINE NEGATIVE (NEGATIVE); PH,URINE 5.5 (5.0-8.0); UGLUCOSE NEGATIVE (NEGATIVE)
[2022-03-12] MEDS: FENTANYL CITRATE/PF 1,000 MCG in IV NORMAL SALINE 80 ML IV PRN (14:37)
[2022-03-12] MEDS: DOBUTamine IV 250 ML IV PRN (14:43)
[2022-03-12 14:56] LABS: *CREATININE,URINE 132.2 mg/dL (30-125); *URINE TOTAL PROTEIN RANDOM 761.4 mg/dL (<150/24HR)
[2022-03-12] MEDS ORDERED: hydrALAZINE HCL 50 MG TABLET PO ONE (15:45)
[2022-03-12] MEDS: CEFEPIME HCL 2 G in IV DEXTROSE 5% 100 ML IV SCH (22:17)
[2022-03-12 22:44] LABS: BACTERIA,URINE MODERATE /HPF (NONE SEEN); SQUAMOUS EPITHELIAL CELL,UR MODERATE /HPF (NONE SEEN); URINE AMORPHOUS URATE MODERATE /HPF; WBC,URINE 0-3 /HPF (0-3)
[2022-03-13] VITALS (28 sets, daily range): BP systolic 94–165; BP diastolic 39–95
[2022-03-13] MEDS: PRECEDEX 400 MCG/100 ML BOTTLE 100 ML IV PRN ×10 (00:44→22:19)
[2022-03-13] MEDS: MIDAZOLAM HCL 50 MG in IV NORMAL SALINE 40 ML IV PRN (01:54)
[2022-03-13] MEDS: FENTANYL CITRATE/PF 1,000 MCG in IV NORMAL SALINE 80 ML IV PRN ×2 (01:56→12:43)
[2022-03-13 05:35] LABS: HEMATOCRIT 30.9 % (36.7-47.1); MEAN CORPUSCULAR HEMOGLOBIN 29.2 uug (23.8-33.4); MEAN CORPUSCULAR VOLUME 87.4 fL (73.0-96.2); PLATELET COUNT (AUTO) 247 K/uL (152-348)
[2022-03-13] MEDS: PANTOPRAZOLE ORAL SUSPENSION 40 MG SUSPDR.PKT NG SCH (06:04)
[2022-03-13 06:20] LABS: BILIRUBIN,DIRECT 1.6 mg/dL (0.0-0.2); MAGNESIUM 3.5 mg/dL (1.8-2.4); PHOSPHOROUS 6.9 mg/dL (2.5-4.9); POTASSIUM 4.2 mmol/L (3.5-5.1); TOTAL PROTEIN, SERUM 7.4 g/dL (6.4-8.2)
[2022-03-13 06:27] LABS: CREATININE 9.5 mg/dL (0.6-1.3)
--- NOTE | 2022-03-13 07:00 | NUR ---
Recieved pt from retail shift supervisor nurse. patient is easily arousable and agitated with a respiratory rate in the 30s. patient on Dobutamin 4 mcg/kg/min, Precedex 1.7 mcg/kg, and Fentanyl 100mcg/kg/hr. patients temp was 101.6F and restrained.
[2022-03-13] MEDS: BLOOD SUGAR DIAGNOSTIC 1 EACH STRIP VI SCH ×4 (08:13→21:00)
--- NOTE | 2022-03-13 08:24 | NUR ---
PT REMAINS UNSTABLE FEBRILE THIS AM. TYLENOL 650 MG GIVEN VIA NGT. COOLING BLANKET IN PLACE. CONTINUE ON DOBUTAMINE, FENTANYL, VERSED, POOR URINE OUTPUT, PENDING DIALYSIS. RECTAL TUBE IN PLACE. ON VENT. TOLERATING TUBE FEEDING.
[2022-03-13 08:34] LABS: ABG HCO3 20.1 mmol/L; ABG PCO2 33.2 mmHg (35.0-45.0); ABG PH 7.399 (7.350-7.450); ABG PO2 75.8 mmHg (75.0-100.0); ABG SITE RIGHT RADIAL; ABG TOTAL HEMOGLOBIN 11.4 G/dL (13.5-18.0); COHb 0.4 % (0.5-1.5); MetHb 0.2 % (0.0-1.5); O2Hb 94.5 % (94.0-97.0); VENT MODE VENT - A/C; VT, ABG 500 mL
[2022-03-13] MEDS: CLOPIDOGREL 75 MG TABLET PO SCH (08:38)
[2022-03-13] MEDS: FUROSEMIDE 40 MG/4 ML VIAL IV SCH ×2 (08:38→21:21)
[2022-03-13] MEDS: levETIRAcetam 500 MG/5 ML LIQUID UDC NG SCH ×2 (08:40→21:20)
[2022-03-13] MEDS: INSULIN NPH 1,000 UNITS/10 ML VIAL SQ SCH ×2 (08:46→21:20)
[2022-03-13] MEDS: APIXABAN 5 MG TABLET PO SCH ×2 (08:59→21:20)
[2022-03-13] MEDS: DOBUTamine IV 250 ML IV PRN (12:46)
[2022-03-13] MEDS: INSULIN REGULAR, HUMAN 300 UNIT/3 ML VIAL SQ PRN ×3 (13:21→21:19)
[2022-03-13] MEDS: DOXYCYCLINE HYCLATE IV 100 MG in IV DEXTROSE 5% 100 ML IV SCH (16:36)
[2022-03-13] MEDS ORDERED: MEROPENEM 500 MG in IV NORMAL SALINE 50 ML IV SCH (18:00)
--- NOTE | 2022-03-13 18:08 | NUR ---
Noe Pierson in the unit. HD in progress.
[2022-03-13] MEDS ORDERED: CEFEPIME HCL 1 G in IV DEXTROSE 5% 50 ML IV SCH (21:00)
[2022-03-13] MEDS: MEROPENEM 500 MG in IV NORMAL SALINE 50 ML IV SCH (21:37)
[2022-03-14] VITALS (35 sets, daily range): BP systolic 81–151; BP diastolic 44–74
[2022-03-14] MEDS: FENTANYL CITRATE/PF 1,000 MCG in IV NORMAL SALINE 80 ML IV PRN ×4 (00:25→21:54)
[2022-03-14] MEDS: PRECEDEX 400 MCG/100 ML BOTTLE 100 ML IV PRN ×5 (02:17→23:42)
[2022-03-14 05:21] LABS: HEMATOCRIT 29.7 % (36.7-47.1); MEAN CORPUSCULAR HEMOGLOBIN 29.1 uug (23.8-33.4); MEAN CORPUSCULAR VOLUME 87.5 fL (73.0-96.2); PLATELET COUNT (AUTO) 246 K/uL (152-348)
[2022-03-14] MEDS: DOXYCYCLINE HYCLATE IV 100 MG in IV DEXTROSE 5% 100 ML IV SCH ×2 (05:23→19:06)
[2022-03-14] MEDS: PANTOPRAZOLE ORAL SUSPENSION 40 MG SUSPDR.PKT NG SCH (05:48)
[2022-03-14 05:49] LABS: BILIRUBIN,DIRECT 1.1 mg/dL (0.0-0.2); BILIRUBIN,TOTAL 1.5 mg/dL (0.2-1.0); MAGNESIUM 3.1 mg/dL (1.8-2.4); PHOSPHOROUS 7.4 mg/dL (2.5-4.9); POTASSIUM 3.7 mmol/L (3.5-5.1); TOTAL PROTEIN, SERUM 7.1 g/dL (6.4-8.2); VANCOMYCIN,RANDOM 17.6 ug/mL (18.0-26.0)
[2022-03-14 05:54] LABS: CREATININE 7.9 mg/dL (0.6-1.3)
[2022-03-14] MEDS: BLOOD SUGAR DIAGNOSTIC 1 EACH STRIP VI SCH ×3 (06:00→21:00)
[2022-03-14 06:07] LABS: *OCCULT BLOOD STOOL POSITIVE (NEGATIVE)
[2022-03-14 06:08] LABS: ABG BASE EXCESS -0.7 mmol/L; ABG HCO3 23.8 mmol/L; ABG PCO2 38.7 mmHg (35.0-45.0); ABG PH 7.407 (7.350-7.450); ABG PO2 90.4 mmHg (75.0-100.0); ABG SITE RIGHT RADIAL; ABG TOTAL HEMOGLOBIN 10.5 G/dL (13.5-18.0); COHb 0.4 % (0.5-1.5); MetHb 0.1 % (0.0-1.5); O2Hb 96.4 % (94.0-97.0); VENT MODE VENT - A/C; VT, ABG 500 mL
[2022-03-14] MEDS: MIDAZOLAM HCL 50 MG in IV NORMAL SALINE 40 ML IV PRN (08:35)
[2022-03-14] MEDS: MEROPENEM 500 MG in IV NORMAL SALINE 50 ML IV SCH ×2 (08:40→21:44)
[2022-03-14] MEDS: levETIRAcetam 500 MG/5 ML LIQUID UDC NG SCH ×2 (08:40→21:17)
[2022-03-14] MEDS: CLOPIDOGREL 75 MG TABLET PO SCH (08:41)
[2022-03-14] MEDS: APIXABAN 5 MG TABLET PO SCH ×2 (08:42→22:03)
[2022-03-14] MEDS: ACETAMINOPHEN 325 MG TABLET PO PRN (08:52)
[2022-03-14] MEDS: INSULIN NPH 1,000 UNITS/10 ML VIAL SQ SCH ×2 (09:14→22:34)
[2022-03-14] MEDS ORDERED: FENTANYL CITRATE/PF 1,000 MCG in IV NORMAL SALINE 80 ML IV PRN ×2 (13:30→13:45)
[2022-03-14] MEDS ORDERED: VANCOMYCIN IV 500 MG in IV DEXTROSE 5% 100 ML IV ONE (16:00)
--- NOTE | 2022-03-14 16:58 | NUR ---
Diability paperwork filled out on wifes part, requesting CM to fill out their section Dionna - - [phone]
--- NOTE | 2022-03-14 17:25 | NUR ---
PT REMAINS INTUBATED ON CMV, NO VENT CHANGES MADE DURING SHIFT. SPO2 AND RESPIRATIONS WNL. NO SIGNS OR SYMPTOMS OF RESPIRATORY DISTRESS NOTED. ETT REPOSITIONED Q2, ETT/ORAL SXN PRN. ORAL CARE PROVIDED. WILL CONTINUE TO MONITOR AND FOLLOW CURRENT RESPIRATORY ORDERS.
[2022-03-15] VITALS (48 sets, daily range): BP systolic 99–155; BP diastolic 66–108
[2022-03-15] MEDS: INSULIN REGULAR, HUMAN 300 UNITS/3 ML VIAL SQ PRN (01:03)
[2022-03-15] MEDS: PRECEDEX 400 MCG/100 ML BOTTLE 100 ML IV PRN ×5 (03:31→20:19)
[2022-03-15] MEDS: DOXYCYCLINE HYCLATE IV 100 MG in IV DEXTROSE 5% 100 ML IV SCH ×2 (04:09→19:08)
[2022-03-15] MEDS: FENTANYL CITRATE/PF 1,000 MCG in IV NORMAL SALINE 80 ML IV PRN ×3 (04:23→20:23)
[2022-03-15 04:57] LABS: HEMATOCRIT 26.1 % (36.7-47.1); MEAN CORPUSCULAR HEMOGLOBIN 29.6 uug (23.8-33.4); MEAN CORPUSCULAR VOLUME 88.3 fL (73.0-96.2); PLATELET COUNT (AUTO) 293 K/uL (152-348)
--- NOTE | 2022-03-15 05:51 | NUR ---
RECEIVED PT INTUBATED ON NGUYEN VENT WITH PRESCRIBED ORDERS. PER MD ORDER, CHANGED PEEP TO +5. RN AWARE WILL CONTINUE TO MONITOR AND DRAW ABG IF ADVERSE EFFECTS ARE NOTED FROM VENT CHANGE. OTEHRWISE, ABG ORDERED FOR 8AM. ALARMS ARE ON/AUDIBLE. VENT PLUGGED IN TO RED OUTLET. AMBUBAG AT BEDSIDE. ET-TUBE REPOSITIONED Q2+PRN. AIRWAY PATENT AND SECURE WITH ANCHORFAST.
[2022-03-15 05:52] LABS: MAGNESIUM 3.3 mg/dL (1.8-2.4)
[2022-03-15 05:59] LABS: CREATININE 9.4 mg/dL (0.6-1.3); PHOSPHOROUS 8.4 mg/dL (2.5-4.9)
[2022-03-15] MEDS: INSULIN REGULAR, HUMAN 300 UNIT/3 ML VIAL SQ PRN ×3 (06:05→20:22)
[2022-03-15] MEDS: PANTOPRAZOLE ORAL SUSPENSION 40 MG SUSPDR.PKT NG SCH (06:18)
[2022-03-15 07:07] LABS: COMPLEMENT, C3 SERUM 169 mg/dL (82-167); COMPLEMENT, C4 SERUM 26 mg/dL (12-38)
[2022-03-15] MEDS: BLOOD SUGAR DIAGNOSTIC 1 EACH STRIP VI SCH ×4 (07:09→21:00)
--- NOTE | 2022-03-15 07:30 | NUR ---
received report from night worker. Pt in bed intubated with chief complaint of shortness of breath. NSR on monitor, 7.5 at lip line, AC 16, TV 500, 35%, Peep 5, with small amount of secretions. rectal tube in place, cheung in place. pt has distended abdomen, IV access on the NYLA ML, NARENDRA PICC. Dialysis scheduled for today. pt sedated versed 1, fentanyl 15ml/hr, presodex 1, dobutamine 2.5 will continue to monitor.
[2022-03-15 08:06] LABS: HEPATITIS B SURFACE AG Negative (Negative)
[2022-03-15 08:13] LABS: ABG BASE EXCESS -3.7 mmol/L; ABG HCO3 21.2 mmol/L; ABG PH 7.365 (7.350-7.450); ABG PO2 90.3 mmHg (75.0-100.0); ABG SITE RIGHT RADIAL; ABG TOTAL HEMOGLOBIN 10.8 G/dL (13.5-18.0); COHb 0.8 % (0.5-1.5); O2Hb 95.7 % (94.0-97.0); VENT MODE VENT - A/C; VT, ABG 500 mL
[2022-03-15] MEDS: CLOPIDOGREL 75 MG TABLET PO SCH (08:56)
[2022-03-15] MEDS ORDERED: INSULIN NPH 1,000 UNITS/10 ML VIAL SQ ONE (08:58)
[2022-03-15] MEDS ORDERED: VANCOMYCIN IV 500 MG in IV DEXTROSE 5% 100 ML IV PRN (09:00)
[2022-03-15] MEDS: APIXABAN 5 MG TABLET PO SCH ×2 (09:00→21:00)
[2022-03-15] MEDS: levETIRAcetam 500 MG/5 ML LIQUID UDC NG SCH ×2 (09:01→21:31)
[2022-03-15 09:06] LABS: *ANTI-SCLERODERMA-70 AB <0.2 AI (0.0-0.9); *SJOGREN'S ANTI-SS-A <0.2 AI (0.0-0.9); *SJOGREN'S ANTI-SS-B <0.2 AI (0.0-0.9); *SMITH ANTIBODIES <0.2 AI (0.0-0.9); ANTI-DNA(DS) AB, QN 1 IU/mL (0-9)
[2022-03-15 09:06] LABS: HEPATITIS B SURFACE AG Negative (Negative)
--- NOTE | 2022-03-15 10:40 | NUR ---
pt started on dialysis, levophed ordered if needed, will continue to monitor
--- NOTE | 2022-03-15 13:30 | NUR ---
pt tolerated dialysis, 3L out, bp remained stable
[2022-03-15] MEDS ORDERED: VANCOMYCIN IV 500 MG in IV DEXTROSE 5% 100 ML IV ONE (15:00)
--- NOTE | 2022-03-15 16:30 | NUR ---
pt O2 levels were going down, FiO2 increased to 60% will continue to monitor. bed bath done, will continue to monitor
[2022-03-15] MEDS: ACETAMINOPHEN 325 MG TABLET PO PRN (16:59)
--- NOTE | 2022-03-15 19:45 | NUR ---
report given to RN.
[2022-03-15] MEDS: MEROPENEM 500 MG in IV NORMAL SALINE 50 ML IV SCH (20:19)
[2022-03-15] MEDS: INSULIN NPH 1,000 UNITS/10 ML VIAL SQ SCH (21:00)
[2022-03-15] MEDS: MIDAZOLAM HCL 50 MG in IV NORMAL SALINE 40 ML IV PRN (21:35)
[2022-03-15] MEDS: DOBUTamine IV 250 ML IV SCH (23:00)
[2022-03-16] VITALS (32 sets, daily range): BP systolic 88–135; BP diastolic 58–86
[2022-03-16] MEDS: PRECEDEX 400 MCG/100 ML BOTTLE 100 ML IV PRN ×7 (00:11→21:07)
[2022-03-16] MEDS: FENTANYL CITRATE/PF 1,000 MCG in IV NORMAL SALINE 80 ML IV PRN ×3 (02:12→16:41)
[2022-03-16] MEDS: DOXYCYCLINE HYCLATE IV 100 MG in IV DEXTROSE 5% 100 ML IV SCH ×2 (04:17→17:20)
[2022-03-16 05:15] LABS: HEMATOCRIT 27.2 % (36.7-47.1); MEAN CORPUSCULAR HEMOGLOBIN 28.7 uug (23.8-33.4); MEAN CORPUSCULAR VOLUME 89.4 fL (73.0-96.2); PLATELET COUNT (AUTO) 358 K/uL (152-348)
[2022-03-16] MEDS: INSULIN REGULAR, HUMAN 300 UNIT/3 ML VIAL SQ PRN ×3 (05:33→17:18)
[2022-03-16 05:39] LABS: BILIRUBIN,TOTAL 1.8 mg/dL (0.2-1.0); CREATININE 7.1 mg/dL (0.6-1.3); MAGNESIUM 3.1 mg/dL (1.8-2.4); POTASSIUM 4.8 mmol/L (3.5-5.1); TOTAL PROTEIN, SERUM 6.8 g/dL (6.4-8.2)
[2022-03-16 05:41] LABS: PHOSPHOROUS 8.2 mg/dL (2.5-4.9)
[2022-03-16] MEDS: PANTOPRAZOLE ORAL SUSPENSION 40 MG SUSPDR.PKT NG SCH (06:33)
--- NOTE | 2022-03-16 07:30 | NUR ---
REPORT GIVEN TO MARY JONES
--- NOTE | 2022-03-16 07:31 | NUR ---
Received pt. slightly agitated opening eyes spontaneously with suctioning and bitting ETT. on precedex at 1mcg/kg/hr. Fentanyl running at 150mcg/hr. verced at 3mg/hr. dobutamine running at 2.5mcg/kg/min fixed dose. On ventilator A/C 16, Tv500 and 60% FIO2 Peep +5. ETT 8 25LL. saturation of 98% hemodynamically stable. Will continue with care plan. Addendum: 03/16/22 at 1136 by ROBERT CAMACHO RN Versed at 4mcg/hr.
[2022-03-16] MEDS: BLOOD SUGAR DIAGNOSTIC 1 EACH STRIP VI SCH ×4 (07:53→21:16)
[2022-03-16] MEDS: CLOPIDOGREL 75 MG TABLET PO SCH (08:59)
[2022-03-16] MEDS: APIXABAN 5 MG TABLET PO SCH ×2 (09:00→21:32)
[2022-03-16] MEDS: levETIRAcetam 500 MG/5 ML LIQUID UDC NG SCH ×2 (09:04→20:53)
[2022-03-16] MEDS: INSULIN NPH 1,000 UNITS/10 ML VIAL SQ SCH ×2 (09:12→21:31)
[2022-03-16] MEDS: ACETAMINOPHEN 325 MG TABLET PO PRN (09:15)
[2022-03-16] MEDS: GLUCERNA 1.2 1000ML LIQUID NG PRN (09:15)
[2022-03-16] MEDS: MIDAZOLAM HCL 50 MG in IV NORMAL SALINE 40 ML IV PRN (11:28)
--- NOTE | 2022-03-16 13:30 | NUR ---
ID physician in the unit to see patient.
[2022-03-16 14:06] LABS: CRYPTOCOCCUS AB, SERUM Negative (Negative)
--- NOTE | 2022-03-16 16:00 | NUR ---
Attending Iron Vgea in the unit to see and examine pt. report given. Orders to continue with care plan received.
--- NOTE | 2022-03-16 16:20 | NUR ---
LUIS Pierson in the unit hemodyalisis in progress.
--- NOTE | 2022-03-16 19:06 | NUR ---
HD procedure done reports of 2600 mls output.
--- NOTE | 2022-03-16 19:07 | NUR ---
Report given to incoming R.N. patient, left with Hd finished.
[2022-03-16] MEDS: MEROPENEM 500 MG in IV NORMAL SALINE 50 ML IV SCH (20:53)
[2022-03-17] VITALS (34 sets, daily range): BP systolic 89–131; BP diastolic 63–92
[2022-03-17] MEDS: FENTANYL CITRATE/PF 1,000 MCG in IV NORMAL SALINE 80 ML IV PRN ×4 (00:19→22:15)
[2022-03-17] MEDS: MIDAZOLAM HCL 50 MG in IV NORMAL SALINE 40 ML IV PRN ×2 (00:37→14:16)
[2022-03-17] MEDS: PRECEDEX 400 MCG/100 ML BOTTLE 100 ML IV PRN ×7 (00:52→21:51)
[2022-03-17] MEDS: ACETAMINOPHEN 325 MG TABLET PO PRN ×3 (01:30→17:53)
[2022-03-17] MEDS: DOBUTamine IV 250 ML IV SCH (05:05)
[2022-03-17] MEDS: DOXYCYCLINE HYCLATE IV 100 MG in IV DEXTROSE 5% 100 ML IV SCH ×2 (05:10→17:16)
[2022-03-17 05:45] LABS: HEMATOCRIT 27.4 % (36.7-47.1); MEAN CORPUSCULAR HEMOGLOBIN 28.6 uug (23.8-33.4); MEAN CORPUSCULAR VOLUME 88.9 fL (73.0-96.2); PLATELET COUNT (AUTO) 446 K/uL (152-348)
[2022-03-17 05:54] LABS: BILIRUBIN,TOTAL 1.1 mg/dL (0.2-1.0); CREATININE 6.9 mg/dL (0.6-1.3); MAGNESIUM 2.8 mg/dL (1.8-2.4); PHOSPHOROUS 7.5 mg/dL (2.5-4.9); POTASSIUM 4.5 mmol/L (3.5-5.1); TOTAL PROTEIN, SERUM 6.9 g/dL (6.4-8.2)
--- NOTE | 2022-03-17 06:01 | NUR ---
Received patient in bed. She Alert and oriented x 4. She complained of pain at her hip site and asked for Mccleary for 01/07 pain. Pt. received breathing treatment by RT, then received Meds and then went to sleep. Patient refused a bath at 4:00. She said that she was not up to it. No signs of distress noted. Report endorsed to Day shift RN. Addendum: 03/17/22 at 0607 by IAN TAVERA RN Above note entered on the wrong patient. This is entered for patient in Room CCU1
--- NOTE | 2022-03-17 06:07 | NUR ---
Received patient in bed . Dialysis nurse was finishing dialysis. Pt is sedated. on Precedex, Versed and Fentanyl. Pt turned and repositioned. Full bed bath given. Patient tolerated it well. No issues during clinical nurse reviewer. Pt received a sedation vacation and he opened his eyes within 10 minuted. BP dropped during the time that the dopamine bag was changed. Pt quickly regained his normal BP. Oral care performed. Report given to on-coming shift.
[2022-03-17] MEDS: BLOOD SUGAR DIAGNOSTIC 1 EACH STRIP VI SCH ×4 (08:10→21:13)
[2022-03-17] MEDS: PANTOPRAZOLE ORAL SUSPENSION 40 MG SUSPDR.PKT NG SCH (08:11)
[2022-03-17] MEDS: CLOPIDOGREL 75 MG TABLET PO SCH (08:12)
[2022-03-17] MEDS: levETIRAcetam 500 MG/5 ML LIQUID UDC NG SCH ×2 (08:13→21:13)
[2022-03-17] MEDS: APIXABAN 5 MG TABLET PO SCH ×2 (08:21→21:13)
[2022-03-17] MEDS: INSULIN NPH 1,000 UNITS/10 ML VIAL SQ SCH ×2 (08:22→21:12)
[2022-03-17] MEDS: INSULIN REGULAR, HUMAN 300 UNIT/3 ML VIAL SQ PRN ×2 (12:36→17:14)
--- NOTE | 2022-03-17 14:02 | NUR ---
Dialysis team at bedside. Patient remains stable
--- NOTE | 2022-03-17 17:25 | NUR ---
RECEIVED PT STABLE ON CURRENT VENT SETTINGS:AC 16 ,PEEP 5, 500VT AND FIO2 30%. SUCTIONED NEEDED. REPOSITION ET TUBE FROM SIDE TO SIDE, DURING THE WHOLE SHIFT. NO NEW ORDERS RECEIVED.
[2022-03-17] MEDS ORDERED: VANCOMYCIN IV 500 MG in IV DEXTROSE 5% 100 ML IV ONE (18:30)
[2022-03-17] MEDS: INSULIN REGULAR, HUMAN 300 UNITS/3 ML VIAL SQ PRN (21:10)
[2022-03-17] MEDS: MEROPENEM 500 MG in IV NORMAL SALINE 50 ML IV SCH (21:13)
[2022-03-17] MEDS: GLUCERNA 1.2 1000ML LIQUID NG PRN (22:17)
[2022-03-18] VITALS (33 sets, daily range): BP systolic 11–147; BP diastolic 49–98
[2022-03-18] MEDS: PRECEDEX 400 MCG/100 ML BOTTLE 100 ML IV PRN ×8 (01:00→21:19)
[2022-03-18] MEDS: MIDAZOLAM HCL 50 MG in IV NORMAL SALINE 40 ML IV PRN ×2 (03:45→17:19)
[2022-03-18] MEDS: FENTANYL CITRATE/PF 1,000 MCG in IV NORMAL SALINE 80 ML IV PRN ×4 (04:23→21:23)
[2022-03-18] MEDS: DOXYCYCLINE HYCLATE IV 100 MG in IV DEXTROSE 5% 100 ML IV SCH ×2 (05:00→21:30)
[2022-03-18 05:33] LABS: CREATININE 6.5 mg/dL (0.6-1.3); POTASSIUM 4.7 mmol/L (3.5-5.1); VANCOMYCIN,RANDOM 23.2 ug/mL (18.0-26.0)
[2022-03-18] MEDS: PANTOPRAZOLE ORAL SUSPENSION 40 MG SUSPDR.PKT NG SCH (07:00)
[2022-03-18] MEDS: BLOOD SUGAR DIAGNOSTIC 1 EACH STRIP VI SCH ×4 (07:29→21:00)
--- NOTE | 2022-03-18 07:43 | NUR ---
Recieved pt from shiftman nurse pt is sedated and intubated. T 101.8 Vent settings AC 16 TV 500 O2 30% PEEP 5 Pt is sinus tachycardia in the 120's RR 18. Fentanyl at 150 mcg/hr precedex 1.3 mcg/kg/hr dobutamin 2.5 mcg/kg/min, and versed 5 mg/hr glucerna 1.2 at 40 ml/hr for 22hrs/day
[2022-03-18] MEDS: APIXABAN 5 MG TABLET PO SCH (08:04)
[2022-03-18] MEDS: CLOPIDOGREL 75 MG TABLET PO SCH (08:05)
[2022-03-18] MEDS: INSULIN REGULAR, HUMAN 300 UNIT/3 ML VIAL SQ PRN ×3 (08:07→16:36)
[2022-03-18] MEDS: INSULIN NPH 1,000 UNITS/10 ML VIAL SQ SCH ×2 (08:09→21:00)
[2022-03-18] MEDS: levETIRAcetam 500 MG/5 ML LIQUID UDC NG SCH ×2 (08:10→21:28)
[2022-03-18] MEDS: DOBUTamine IV 250 ML IV SCH (11:57)
[2022-03-18] MEDS: ACETAMINOPHEN 325 MG TABLET PO PRN (12:58)
--- NOTE | 2022-03-18 16:15 | NUR ---
Hemodialysis in progress.
--- NOTE | 2022-03-18 19:20 | NUR ---
HD completed pt tolerated well. 300ml fluid taken out VS stable. BP dropped momentarily and quickly recovered.
[2022-03-18] MEDS: APIXABAN 2.5 MG TABLET NG SCH (21:00)
[2022-03-18] MEDS: MEROPENEM 500 MG in IV NORMAL SALINE 50 ML IV SCH (21:24)
[2022-03-19] VITALS (27 sets, daily range): BP systolic 87–149; BP diastolic 44–80
[2022-03-19] MEDS: PRECEDEX 400 MCG/100 ML BOTTLE 100 ML IV PRN ×8 (00:50→23:49)
[2022-03-19] MEDS: INSULIN REGULAR, HUMAN 300 UNITS/3 ML VIAL SQ PRN (03:33)
[2022-03-19 05:12] LABS: HEMATOCRIT 27.3 % (36.7-47.1); MEAN CORPUSCULAR HEMOGLOBIN 29.2 uug (23.8-33.4); MEAN CORPUSCULAR VOLUME 89.1 fL (73.0-96.2); PLATELET COUNT (AUTO) 490 K/uL (152-348)
[2022-03-19 05:21] LABS: BILIRUBIN,DIRECT 0.6 mg/dL (0.0-0.2); BILIRUBIN,TOTAL 0.9 mg/dL (0.2-1.0); CREATININE 5.9 mg/dL (0.6-1.3); MAGNESIUM 2.5 mg/dL (1.8-2.4); PHOSPHOROUS 7.8 mg/dL (2.5-4.9); POTASSIUM 4.3 mmol/L (3.5-5.1); TOTAL PROTEIN, SERUM 7.3 g/dL (6.4-8.2)
[2022-03-19] MEDS: FENTANYL CITRATE/PF 1,000 MCG in IV NORMAL SALINE 80 ML IV PRN ×3 (06:09→21:02)
[2022-03-19] MEDS: MIDAZOLAM HCL 50 MG in IV NORMAL SALINE 40 ML IV PRN ×2 (06:11→20:19)
[2022-03-19] MEDS: PANTOPRAZOLE ORAL SUSPENSION 40 MG SUSPDR.PKT NG SCH (06:16)
[2022-03-19] MEDS: BLOOD SUGAR DIAGNOSTIC 1 EACH STRIP VI SCH ×4 (06:33→21:13)
[2022-03-19] MEDS: INSULIN REGULAR, HUMAN 300 UNIT/3 ML VIAL SQ PRN ×3 (06:35→16:51)
[2022-03-19 06:54] LABS: ABG BASE EXCESS 0.8 mmol/L; ABG HCO3 25.5 mmol/L; ABG PCO2 41.5 mmHg (35.0-45.0); ABG PH 7.407 (7.350-7.450); ABG PO2 76.1 mmHg (75.0-100.0); ABG SITE RIGHT RADIAL; ABG TOTAL HEMOGLOBIN 10.2 G/dL (13.5-18.0); COHb 0.5 % (0.5-1.5); O2Hb 94.1 % (94.0-97.0); VENT MODE VENT - A/C; VT, ABG 500 mL
--- NOTE | 2022-03-19 07:00 | NUR ---
Recieved pt from night monitor nurse afebrile and VS stable. pt intubated and not easily arousable. pt is reting comfortably at this time
[2022-03-19] MEDS: DOXYCYCLINE HYCLATE IV 100 MG in IV DEXTROSE 5% 100 ML IV SCH ×2 (07:54→20:31)
[2022-03-19] MEDS: CLOPIDOGREL 75 MG TABLET PO SCH (08:28)
[2022-03-19] MEDS: APIXABAN 2.5 MG TABLET NG SCH ×2 (08:28→21:16)
[2022-03-19] MEDS: INSULIN NPH 1,000 UNITS/10 ML VIAL SQ SCH ×2 (08:31→21:18)
[2022-03-19] MEDS: levETIRAcetam 500 MG/5 ML LIQUID UDC NG SCH ×2 (08:31→21:11)
[2022-03-19] MEDS: DOBUTamine IV 250 ML IV SCH (18:50)
[2022-03-19] MEDS ORDERED: ATORVASTATIN 40 MG TABLET NG SCH (21:00)
[2022-03-19] MEDS: MEROPENEM 500 MG in IV NORMAL SALINE 50 ML IV SCH (21:36)
[2022-03-20] VITALS (14 sets, daily range): BP systolic 79–131; BP diastolic 34–74
[2022-03-20] MEDS: ACETAMINOPHEN 325 MG TABLET PO PRN (03:10)
[2022-03-20] MEDS: PRECEDEX 400 MCG/100 ML BOTTLE 100 ML IV PRN (03:17)
[2022-03-20 04:34] LABS: MEAN CORPUSCULAR HEMOGLOBIN 29.2 uug (23.8-33.4); MEAN CORPUSCULAR VOLUME 88.1 fL (73.0-96.2); PLATELET COUNT (AUTO) 399 K/uL (152-348)
[2022-03-20] MEDS: NOREPINEPHRINE BITARTRATE 8 MG in IV NORMAL SALINE 242 ML IV PRN (04:39)
[2022-03-20] MEDS: FENTANYL CITRATE/PF 1,000 MCG in IV NORMAL SALINE 80 ML IV PRN (04:51)
[2022-03-20 04:55] LABS: MAGNESIUM 2.8 mg/dL (1.8-2.4)
--- NOTE | 2022-03-20 05:05 | NUR ---
At this time patient heart rate in the 130-that quickly progressed to SVT 140's 160's and suddenly dropping to the low 30' and went asystole. Code blue called and patient immediately received treatment as recommended by AAA. At 0508 ER physician and Er nurses arrived compressions in progress. Code blue run over 30 minutes. Patient remained asystole with pulse checks and medications. code called by Dr. Yesi Alfaro. Patient pronounced by at exactly 0535.
[2022-03-20 05:17] LABS: POTASSIUM 6.8 mmol/L (3.5-5.1)
[2022-03-20 05:18] LABS: CREATININE 7.7 mg/dL (0.6-1.3); PHOSPHOROUS 10.2 mg/dL (2.5-4.9)
[2022-03-20] MEDS ORDERED: CALCIUM CHLORIDE 1 GM/10 ML DISP.SYRIN IVP ONE (05:19)
[2022-03-20] MEDS ORDERED: ALBUTEROL SULFATE 2.5 MG/3 ML NEBU ONE ×2 (05:22→05:24)
--- NOTE | 2022-03-20 05:35 | NUR ---
ROBERT BLUE CALLED AT 0502, CPR INITIATED, ASSISTED BY ROBERT HERNANDEZ, DR GIORDANO, RTS MARC AND GRAHAM. PT PRONOUNCED AT 0535.
--- NOTE | 2022-03-20 05:45 | NUR ---
Attending vest front presser Mahsa Ariza called to be notified that pt. coded and did not make.
--- NOTE | 2022-03-20 06:20 | NUR ---
Called [facility] and spoke with coordinator Fanta report of disease patient given and [facility] as stated Will not pursue any tissue donation c# [id number].
--- NOTE | 2022-03-20 07:45 | NUR ---
Postmortem care will be endorse to receiving rn. Sonny Menezes.
--- NOTE | 2022-03-20 07:48 | NUR ---
waist of narcotic will be done by receiving R.N. room now occupied by family. Unable to perform activity.,
[2022-03-20 16:06] LABS: COCCIDIOIDES CF SERUM Negative (Neg:<1:2)
== END 2022-03-20 12:11 | DRG 720 ==
LOC: ER 13:52 → TRANSITION 18:00 → CCU 03-06 13:27
PROVIDERS: ADMIT Nurse Practitioner Acute Care; ATTEND Internal Medicine
PROC: 5A09357 Assistance with Respiratory Ventilation, Less than 24 Consecutive Hours, Continuous Positive Airway Pressure (ICD-10-PCS; principal; 2022-03-05)
PROC: B547ZZA Ultrasonography of Left Subclavian Vein, Guidance (ICD-10-PCS; 2022-03-06)
PROC: 05H633Z Insertion of Infusion Device into Left Subclavian Vein, Percutaneous Approach (ICD-10-PCS; 2022-03-06)
PROC: 05H533Z Insertion of Infusion Device into Right Subclavian Vein, Percutaneous Approach (ICD-10-PCS; 2022-03-07)
PROC: B546ZZA Ultrasonography of Right Subclavian Vein, Guidance (ICD-10-PCS; 2022-03-07)
PROC: 0BH17EZ Insertion of Endotracheal Airway into Trachea, Via Natural or Artificial Opening (ICD-10-PCS; 2022-03-07)
PROC: 5A1955Z Respiratory Ventilation, Greater than 96 Consecutive Hours (ICD-10-PCS; 2022-03-07)
PROC: B547ZZA Ultrasonography of Left Subclavian Vein, Guidance (ICD-10-PCS; 2022-03-11)
PROC: 05H633Z Insertion of Infusion Device into Left Subclavian Vein, Percutaneous Approach (ICD-10-PCS; 2022-03-11)
PROC: 02HV33Z Insertion of Infusion Device into Superior Vena Cava, Percutaneous Approach (ICD-10-PCS; 2022-03-12)
PROC: B548ZZA Ultrasonography of Superior Vena Cava, Guidance (ICD-10-PCS; 2022-03-12)
PROC: 5A1D70Z Performance of Urinary Filtration, Intermittent, Less than 6 Hours Per Day (ICD-10-PCS; 2022-03-13)
PROC: B54BZZA Ultrasonography of Right Lower Extremity Veins, Guidance (ICD-10-PCS; 2022-03-13)
PROC: 06HM33Z Insertion of Infusion Device into Right Femoral Vein, Percutaneous Approach (ICD-10-PCS; 2022-03-13)
PROC: 5A12012 Performance of Cardiac Output, Single, Manual (ICD-10-PCS; 2022-03-20)
DX: A41.9 Sepsis, unspecified organism (principal); J96.01 Acute respiratory failure with hypoxia; N17.0 Acute kidney failure with tubular necrosis; K72.00 Acute and subacute hepatic failure without coma; J69.0 Pneumonitis due to inhalation of food and vomit; R65.21 Severe sepsis with septic shock; G92.8 Other toxic encephalopathy; D68.59 Other primary thrombophilia; E83.9 Disorder of mineral metabolism, unspecified; J15.9 Unspecified bacterial pneumonia; E87.1 Hypo-osmolality and hyponatremia; I21.4 Non-ST elevation (NSTEMI) myocardial infarction; I50.43 Acute on chronic combined systolic (congestive) and diastolic (congestive) heart failure; E87.6 Hypokalemia; E88.09 Other disorders of plasma-protein metabolism, not elsewhere classified; F41.9 Anxiety disorder, unspecified; E11.65 Type 2 diabetes mellitus with hyperglycemia; E11.22 Type 2 diabetes mellitus with diabetic chronic kidney disease; N18.9 Chronic kidney disease, unspecified; Z20.822 Contact with and (suspected) exposure to COVID-19; Z28.310 Unvaccinated for COVID-19; Z79.4 Long term (current) use of insulin; I50.33 Acute on chronic diastolic (congestive) heart failure; R74.01 Elevation of levels of liver transaminase levels; I25.10 Atherosclerotic heart disease of native coronary artery without angina pectoris; I25.5 Ischemic cardiomyopathy; I51.3 Intracardiac thrombosis, not elsewhere classified; I69.354 Hemiplegia and hemiparesis following cerebral infarction affecting left non-dominant side; Z79.84 Long term (current) use of oral hypoglycemic drugs; Z95.5 Presence of coronary angioplasty implant and graft; I13.0 Hypertensive heart and chronic kidney disease with heart failure and stage 1 through stage 4 chronic kidney disease, or unspecified chronic kidney disease; E66.9 Obesity, unspecified; Z68.33 Body mass index [BMI] 33.0-33.9, adult; I25.2 Old myocardial infarction; M89.8X9 Other specified disorders of bone, unspecified site
CPT/HCPCS: 36415; 36569; 36600; 70450; 71045; 71250; 76705; 76770; 83605; 83690; 83735; 84100; 84156; 84300; 84443; 84478; 84484; 85025; 85610; 85651; 85730; 86038; 86140; 86160; 86606; 86706; 86803; 87040; 87328; 87340; 87400; 87806; 90937; 93005; 93307; 94002; 94003; 94640; 94660; 99082-TC; A4663; A6209; G0378; J0171; J0330; J0360; J0456; J0690; J0692; J0696; J1644; J1815; J1940; J2060; J2185; J2250; J2358; J2405; J2765; J3010; J3370; J3475; J3480; J3490; J7040; J7050; J7060; J7120; P9047; U0003